=== PATIENT | female | born 1955 | race Caucasian/White ===

== ENCOUNTER 2018-01-21 15:30 | Outpatient (RCR) | payer OTHER, SELFPAY ==
--- NOTE | 2017-11-02 10:25 | HP.PTEVAL ---
Patient's Visit Information CHRIS SANTO is a 61 year old F referred to Physical Therapy by MAGDALENA Araiza with a diagnosis of S/P ORIF PILON AND FIBULA FX ORIF. Date of Evaluation: 11/01/17 Physical Therapist: Dakota Jacob, PT, - Visit Plan Frequency: 2-3x /Week Duration: WEEKS Plan: Intially start 1xweek for ROM ,edema control ,hip/knee condition ex's,no rotational ex;s IN/EV. plan to see MD for x-rays healing confirmed okay for sagittal motion. PATIENT NWB LEFT LE ,PROGRESS WITH WB PER MD - Subjective Subjective: This 61 y/o female presents to physical therapy with s/p pilon and fibula fracture ORIF. Patient injuried ankle descending hill twisted when fell ,patient went to ER [facility] x-rays ,Recommended orthopedics,but recommended DR Cates. Thus didnt have surgery until Sep 17 2017. Patient d/c to home with walker and crutches with NWB left. Recommened PT but no. inversion/eversion -rotational .Seen DR last week x-rays looked good but not totally healed. Currently has cast with luis miguel wrap ,plan for boot next visit.Denies parathesia/tingling. Patient injury affected daily activities ,ADL'S ,housework tasks. and unable to do job demands.Patient asecend/desend steps scoots up on buttuck 13 steps 2nd floor. VOCATION: libarian. SOCIAL: - Pain Left Ankle Pain Intensity (Out of 10): 2 Pain Intensity Range: 10 - Objective POSTURE: normal arch. GAIT: ambulates with NWB left ankle with crutches. BALANCE: fair+ with crutches. NEURO: denies parathesia/tingling ,light touch intact. INSCION: well approximate with sterry strips,with dressing. EDEMA: MET HEADS 26.5 cm ,tri-malleor joint line 34.5 cm. AROM: 35 -0 DF,PF 40 degrees ,IN/EV NT. MMT: dosiflexion 3+/5,plantarflexion 2+/5 in available ROM. CALF : atrophied - Goals Goal 1:: Independant with HEP Goal Time Frame: 8-12 Weeks Goal 2:: Ambulate with least restrictive device with improve quality of gait pattern recirocal Goal Time Frame: 8-12 Weeks Goal 3:: Patient to improve dynamic balnce to good along with increase proprioception to improve gait with stance time Goal Time Frame: 8-12 Weeks Goal 4:: Patient increase AROM left ankle DF to 5-0 degrees ,PF 60 degrees ,IN/EV as catherine. to improve function. Goal Time Frame: 8-12 Weeks Goal 5:: Patient incrases ankle strength tpo 4/5 except GS to 3+/5 to improve function Goal Time Frame: 8-12 Weeks Goal 6:: Patient be able to ascend/descend 12 steps with rail Goal Time Frame: 8-12 Weeks - Rehabilitation Potential Physical Therapy Diagnosis: This patient fell causing fracture right ankle pilon and fibula fx with NWB left with crutches and no rotation ankle activitiy IN/EV until x-ray per MD. Patient has impairments with loss of motion,strength ,decrease gait and balance thus causes impairments with function Rehabilitation Potential: Good - Anticipated Interventions Patient/Client Instruction: Educate patient on: Condition, Plan of Care For the Purpose of:: To decrease pain, To increase ROM, To improve muscle performance and motor function, To improve ability to perform ADL's, To increase tolerance to activity/condition/position, To decrease level of supervision to perform tasks, To improve ability of physical actions for home/community/work/leisure, To improve gait and locomotor functions, To improve health of tissue, To decrease soft tissue restriction, To increase flexibility/ROM, To improve endurance, To improve balance, To improve safety with gait, To assume or resume ADL's, To improve ability to perform tasks related to life management Therapeutic Exercise to Include: Strength training, Endurance training, Balance training, Flexibilty training, Gait and locomotor training, Passive ROM, Active ROM Comment: INITIALLY SAGGITAL MOTION ,NO IN/EV ,NWB- PROGRESS PER MD For the Purpose of:: To decrease pain, To improve muscle performance and motor function, To improve ability to perform ADL's, To increase tolerance to activity/condition/position, To improve performance and independence with ADL's, To decrease level of supervision to perform tasks, To improve ability of physical actions for home/community/work/leisure, To improve health of tissue, To decrease soft tissue restriction, To increase flexibility/ROM, To improve safety with gait, To reduce risk of recurrence, To improve ability to perform tasks related to life management TENS: Yes IF ES: Yes Other electric stimulation: Yes Cryotherapy (ice pack, ice massage): Yes Thermo therapy (hot pack): Yes Vasopneumatic device: Yes For the Purpose of:: To decrease pain, To decrease swelling/inflammation, To improve nutrient delivery to tissue, To increase oxygenation perfusion, To improve health of tissue, To decrease soft tissue restriction, To increase flexibility/ROM Thank you for the opportunity to evaluate your patient. For Medicare and Medicare HMO plans, please review the plan of care and approve it. It will need to be FAXED BACK to us at [phone] for Medicare purposes. Please let me know if there are questions or concerns regarding this plan of care. Physician Signature: Date:
--- NOTE | 2017-11-02 10:30 | HP.PTEVAL_ITS ---
Patient's Visit Information CHRIS SANTO is a 61 year old F referred to Physical Therapy by Carmelina Cates, MAGDALENA NAGEL with a diagnosis of S/P ORIF PILON AND FIBULA FX ORIF. Date of Evaluation: 11/01/17 Physical Therapist: Dakota Jacob, PT, - Visit Plan Frequency: 2-3x /Week Duration: 8weeks Plan: Intially start 1xweek for ROM ,edema control ,hip/knee condition ex's,no rotational ex;s IN/EV. plan to see MD for x-rays healing confirmed okay for sagittal motion. PATIENT NWB LEFT LE ,PROGRESS WITH WB PER MD - Subjective Subjective: This 61 y/o female presents to physical therapy with s/p pilon and fibula fracture ORIF. Patient injuried ankle descending hill twisted when fell , patient went to ER [facility] x-rays ,Recommended orthopedics,but recommended DR Cates. Thus didnt have surgery until Sep 17 2017. Patient d/c to home with walker and crutches with NWB left. Recommened PT but no. inversion/eversion - rotational .Seen DR last week x-rays looked good but not totally healed. Currently has cast with luis miguel wrap ,plan for boot next visit.Denies parathesia/ tingling. Patient injury affected daily activities ,ADL'S ,housework tasks. and unable to do job demands.Patient asecend/desend steps scoots up on buttuck 13 steps 2nd floor. VOCATION: libarian. SOCIAL: - Pain Left Ankle Pain Intensity (Out of 10): 2 Pain Intensity Range: 10 - Objective POSTURE: normal arch. GAIT: ambulates with NWB left ankle with crutches. BALANCE: fair+ with crutches. NEURO: denies parathesia/tingling ,light touch intact. INSCION: well approximate with sterry strips,with dressing. EDEMA: MET HEADS 26.5 cm ,tri-malleor joint line 34.5 cm. AROM: 35 -0 DF,PF 40 degrees ,IN/EV NT. MMT: dosiflexion 3+/5,plantarflexion 2+/5 in available ROM. CALF : atrophied - Goals Goal 1:: Independant with HEP Goal Time Frame: 8-12 Weeks Goal 2:: Ambulate with least restrictive device with improve quality of gait pattern recirocal Goal Time Frame: 8-12 Weeks Goal 3:: Patient to improve dynamic balnce to good along with increase proprioception to improve gait with stance time Goal Time Frame: 8-12 Weeks Goal 4:: Patient increase AROM left ankle DF to 5-0 degrees ,PF 60 degrees ,IN/ EV as catherine. to improve function. Goal Time Frame: 8-12 Weeks Goal 5:: Patient incrases ankle strength tpo 4/5 except GS to 3+/5 to improve function Goal Time Frame: 8-12 Weeks Goal 6:: Patient be able to ascend/descend 12 steps with rail Goal Time Frame: 8-12 Weeks - Rehabilitation Potential Physical Therapy Diagnosis: This patient fell causing fracture right ankle pilon and fibula fx with NWB left with crutches and no rotation ankle activitiy IN/EV until x-ray per MD. Patient has impairments with loss of motion,strength , decrease gait and balance thus causes impairments with function Rehabilitation Potential: Good - Anticipated Interventions Patient/Client Instruction: Educate patient on: Condition, Plan of Care For the Purpose of:: To decrease pain, To increase ROM, To improve muscle performance and motor function, To improve ability to perform ADL's, To increase tolerance to activity/condition/position, To decrease level of supervision to perform tasks, To improve ability of physical actions for home/ community/work/leisure, To improve gait and locomotor functions, To improve health of tissue, To decrease soft tissue restriction, To increase flexibility/ ROM, To improve endurance, To improve balance, To improve safety with gait, To assume or resume ADL's, To improve ability to perform tasks related to life management Therapeutic Exercise to Include: Strength training, Endurance training, Balance training, Flexibilty training, Gait and locomotor training, Passive ROM, Active ROM Comment: INITIALLY SAGGITAL MOTION ,NO IN/EV ,NWB- PROGRESS PER MD For the Purpose of:: To decrease pain, To improve muscle performance and motor function, To improve ability to perform ADL's, To increase tolerance to activity /condition/position, To improve performance and independence with ADL's, To decrease level of supervision to perform tasks, To improve ability of physical actions for home/community/work/leisure, To improve health of tissue, To decrease soft tissue restriction, To increase flexibility/ROM, To improve safety with gait, To reduce risk of recurrence, To improve ability to perform tasks related to life management TENS: Yes IF ES: Yes Other electric stimulation: Yes Cryotherapy (ice pack, ice massage): Yes Thermo therapy (hot pack): Yes Vasopneumatic device: Yes For the Purpose of:: To decrease pain, To decrease swelling/inflammation, To improve nutrient delivery to tissue, To increase oxygenation perfusion, To improve health of tissue, To decrease soft tissue restriction, To increase flexibility/ROM Thank you for the opportunity to evaluate your patient. For Medicare and Medicare HMO plans, please review the plan of care and approve it. It will need to be FAXED BACK to us at [phone] for Medicare purposes. Please let me know if there are questions or concerns regarding this plan of care. Physician Signature: Date:
--- NOTE | 2017-11-19 17:06 | ED.VISSUMM ---
- ER Visit Summary Date of Service: 09/04/17 This is an addendum to the previous dictation on 09/04/2017. Patient was consented for procedural sedation and closed reduction of trimalleolar fracture/dislocation. Procedural sedation was performed with IV propofol by myself. Sedation start time was 1555, and end time was 1608. Closed reduction was performed with the assistance of Dr. Renny Calvin. Ortho-Glass splint was applied by myself. She was observed following procedural sedation. After discussion with orthopedics, patient was discharged and advised outpatient follow up. This note was generated with [employer] dictation software. It may contain incorrect words, spelling, and punctuation that were not noted in review of the chart prior to signing
--- NOTE | 2017-11-19 17:10 | ED.DCSUM_ITS ---
- ER Visit Summary Date of Service: 09/04/17 This is an addendum to the previous dictation on 09/04/2017. Patient was consented for procedural sedation and closed reduction of trimalleolar fracture/ dislocation. Procedural sedation was performed with IV propofol by myself. Sedation start time was 1555, and end time was 1608. Closed reduction was performed with the assistance of Dr. Renny Calvin. Ortho-Glass splint was applied by myself. She was observed following procedural sedation. After discussion with orthopedics, patient was discharged and advised outpatient follow up. This note was generated with [employer] dictation software. It may contain incorrect words, spelling, and punctuation that were not noted in review of the chart prior to signing
--- NOTE | 2018-04-15 08:28 | HP.PT.NRP ---
HP - Discharge Summary (1) - Patient Information CHRIS SANTO was seen in my office for initial evaluation on 11/01/17. The following Plan of Care was established for this patient: Initial Frequency: 2-3x /Week Initial Duration: 8weeks - Anticipated Interventions Patient/Client Instruction: Educate patient on: Condition, Plan of Care For the Purpose of:: To decrease pain, To increase ROM, To improve muscle performance and motor function, To improve ability to perform ADL's, To increase tolerance to activity/condition/position, To decrease level of supervision to perform tasks, To improve ability of physical actions for home/community/work/leisure, To improve gait and locomotor functions, To improve health of tissue, To decrease soft tissue restriction, To increase flexibility/ROM, To improve endurance, To improve balance, To improve safety with gait, To assume or resume ADL's, To improve ability to perform tasks related to life management Therapeutic Exercise to Include: Strength training, Endurance training, Balance training, Flexibilty training, Gait and locomotor training, Passive ROM, Active ROM For the Purpose of:: To decrease pain, To improve muscle performance and motor function, To improve ability to perform ADL's, To increase tolerance to activity/condition/position, To improve performance and independence with ADL's, To decrease level of supervision to perform tasks, To improve ability of physical actions for home/community/work/leisure, To improve health of tissue, To decrease soft tissue restriction, To increase flexibility/ROM, To improve safety with gait, To reduce risk of recurrence, To improve ability to perform tasks related to life management TENS: Yes IF ES: Yes Other electric stimulation: Yes Cryotherapy (ice pack, ice massage): Yes Thermo therapy (hot pack): Yes Vasopneumatic device: Yes For the Purpose of:: To decrease pain, To decrease swelling/inflammation, To improve nutrient delivery to tissue, To increase oxygenation perfusion, To improve health of tissue, To decrease soft tissue restriction, To increase flexibility/ROM This patient was last seen in our office 01/21/18. Pertinent comments regarding their Physical therapy will appear below: Patient seen for PT for s/p pilon fx tibia/fibula for 11 visits focusing on WB restriction ,gait,ROM,strengthening,balance and progression with WBAT with shoe. Patient progressed well towards goals with gait,balance ,ROM,strength but IN/EV restricted.Thus patient is d/c. At this point I will be discontinuing this patient from physical therapy. I would be happy to see this patient again in the future if found appropriate by the physician. Thank you! Dakota Jacob, PT,
== END 2018-01-21 19:00 | disposition home or self-care (01) ==
LOC: PT 15:30
PROVIDERS: Family Provider Family Medicine; PCP Family Medicine; Visit Provider Podiatrist
DX: Z98.890 Other specified postprocedural states (principal)
CPT/HCPCS: 97016; 97110; 97162

== ENCOUNTER → 2019-06-09 10:24 | Outpatient (CLI) | payer OTHER, SELFPAY ==
[2019-06-09 11:30] LABS: Anion Gap 4 (5-15); BUN 12 mg/dL (7-18); Calcium,Total 8.6 mg/dL (8.5-10.1); Chloride 109 mmol/L (98-107); Cholesterol 142 mg/dL (200); EST Glomerular Filtration Rate 77 mL/min (>60); Est Glom Filt Rate - Afr Amer 93 mL/min (>60); Glucose 86 mg/dL (74-106); High Density Lipoprotein 62 mg/dL; Sodium Level 141 mmol/L (136-145); Triglycerides 60 mg/dL; Very Low Density Lipoprotein 12 mg/dL (5-40)
== END ==
PROVIDERS: Family Provider Family Medicine; PCP Family Medicine; Referring Provider Family Medicine; Visit Provider Family Medicine
DX: Z13.220 Encounter for screening for lipoid disorders (principal); Z13.1 Encounter for screening for diabetes mellitus
CPT/HCPCS: 36415; 80048; 80061

== ENCOUNTER 2020-06-15 09:22 | Emergency (ER) | payer OTHER, SELFPAY ==
[2020-06-15 09:23] VITALS: BP 135/89; PULSE 79; RESP 16; TEMP 36.7; O2SAT 100; BMI 27.2
--- NOTE | 2020-06-15 09:42 | ED.VIS.GEN ---
History of Present Illness <Mau Rivas - Last Filed: 06/15/20 10:56> Informant: Patient Onset: Days Context: Gradual Onset Timing: Intermittent Current Severity: Moderate Narrative: 64-year-old female with no significant past medical history presents with complaints of back pain. Around 5 days ago she started having back pain near her left scapula and mid back. It is worse with movement or lifting and improves if she stands with good posture. Last night it started radiating around under her left breast. She she lifted heavy plants a few days before her symptoms started and does not know if this was an inciting event. Denies deep chest pain, shortness of breath, cough, hemoptysis, abdominal pain, nausea, vomiting, or bowel/bladder changes. No recent surgery or travel, leg pain or swelling, or history of DVT/PE. Denies cardiac history or history of kidney stones. <RosalineKeila - Last Filed: 06/15/20 12:24> Chief Complaint: Back Past Medical History <Mau Rivas - Last Filed: 06/15/20 10:56> Past Medical History: None Surgical History: - - Open reduction internal fixation left, BLTL, Back surgery. Smoking Status: Former smoker - Family History Maternal Family History: Reports: - - No maternal history however maternal grandfather w/ DM and maternal grandmother w/ HD, OA. Paternal Family History: Reports: - - Father w/ HTN, Paternal Grandfather w/ CA, CVA and Paternal Grandmother w/ HD, HTN. <Keila Waggoner - Last Filed: 06/15/20 12:24> - Allergies and Home Meds Allergies/Adverse Reactions: Allergies triamcinolone [From Kenalog] Allergy (Verified 06/15/20 09:22) Other Primary Care Physician: Alfred Light MD [Primary Care Provider] - Review of Systems General: Denies: Chills, Fever, Sweats Eyes: Denies: Visual changes - bilaterally, Diplopia ENT: Denies: Rhinorrhea, Sore throat Cardiovascular: Denies: Chest pain, Palpitations Respiratory: Denies: Dyspnea, Cough, Dyspnea on exertion Gastrointestinal: Denies: Abdominal pain, Nausea, Vomiting, Diarrhea, Melena, Hematochezia Genitourinary: Denies: Dysuria, Hematuria, Frequency Musculoskeletal: Reports: Back pain. Denies: Extremity Pain Skin: Denies: Rash, Wounds Neurological: Denies: Headache, Weakness, Parasthesia, Numbness <Keila Waggoner - Last Filed: 06/15/20 12:24> Physical Exam Vital Signs/Narrative: Vital Signs Temp Pulse Resp BP Pulse Ox 06/15/20 09:23 98.1 F 79 16 135/89 H 100 <Mau Rivas - Last Filed: 06/15/20 10:56> Vital Signs/Narrative: Vital Signs Temp Pulse Resp BP Pulse Ox 06/15/20 09:23 98.1 F 79 16 135/89 H 100 Inital Vital Signs reviewed: Yes General: Well nourished, Well developed, No Acute Distress Head: Normocephalic, Atraumatic Eyes: EOMI ENT: Moist mucous membranes, No rhinorrhea Neck: Supple, Nontender Cardiovascular: Regular rate, Regular rhythm, No murmurs Respiratory: No distress, CTA bilaterally, Chest nontender Abdomen: Soft, Nontender, Nondistended, Normal bowel sounds Back: Normal Inspection, CVA tenderness - Left, - - No midline spinal tenderness, no step-off or crepitus. Extremities: Nontender, No edema Skin: Normal color, No rash Neurological: Alert, Oriented x3 Psychological: Normal affect, Normal Mood <Keila Waggoner - Last Filed: 06/15/20 12:24> Diagnostic/Tx/Re-eval - Medical Decision Making I supervised the PA and have performed my own pertinent history and physical. Results and treatment plan were discussed. HPI: Patient complains of left flank pain that began 3 days ago. This began approximate 24 hours after eating a heavy planter. She denies any other trauma. No fall, MVA, or change in activity. Reports the pain is 8 out of 10 at worst and 3 out of 10 currently. It is worsened by movement. She denies any dysuria frequency. She denies any chest pain or shortness of breath. She has no personal history of kidney stones. She does have a family history of kidney stones. PE: Vitals: Stable. Afebrile. General: Well-nourished and well-developed. Head: Normocephalic atraumatic. Neck: Supple, no lymphadenopathy. No JVD. Nontender. Cardiovascular: Regular rate and rhythm. No murmurs. Respiratory: No respiratory distress. Clear to auscultation bilaterally. Abdominal: Soft, nontender, nondistended, normal bowel sounds. No guarding, rebound, or peritoneal signs. Back: No vertebral tenderness. No paraspinous muscular tenderness. She does have mild tenderness with percussion of the left CVA. Extremities: Nontender, no edema. Skin: Normal color, no rash. Neurologic: Alert and oriented ?3. Cranial nerves II through XII are intact. Normal strength and sensation. Psych: Normal affect. Emergency Department course: Blood work and UA obtained. No evidence of infection. Did discuss the possibility of a stone without hematuria with the patient. She wants to hold off on a CT at this time. I feel that is a reasonable course of action. Patient is resting comfortably. Treatment Plan: Patient will be discharged with Percocet. Instructed to follow-up with her primary care physician in 3 to 5 days if not improving. Return to the emergency department for any worsening symptoms. This note was generated with [employer] dictation software. It may contain incorrect words, spelling, and punctuation that were not noted in review of the chart prior to signing. <Mau Rivas - Last Filed: 06/15/20 10:56> Laboratory Data 06/15/20 06/15/20 06/15/20 10:00 10:00 10:00 WBC 8.5 RBC 4.36 Hgb 13.7 Hct 41.8 MCV 95.9 MCH 31.4 MCHC 32.8 RDW Std Deviation 45.9 H RDW Coeff of Hazel 13.0 Plt Count 295 MPV 11.3 Immature Gran % (Auto) 0.100 Neut % (Auto) 69.0 Lymph % (Auto) 23.9 Moore % (Auto) 5.2 Eos % (Auto) 1.3 Baso % (Auto) 0.5 Absolute Neuts (auto) 5.9 Absolute Lymphs (auto) 2.03 Nucleated RBC % 0 Sodium 142 Potassium 3.7 Chloride 108 H Carbon Dioxide 32.0 Anion Gap 2 L BUN 10 Creatinine 0.86 Estim Creat Clear Calc 67.54 Est GFR (MDRD) Af Amer 86 Est GFR (MDRD) Non-Af 71 BUN/Creatinine Ratio 11.6 Glucose 102 Calcium 9.0 Lipase 56 L Urine Color Yellow Urine Clarity Clear Urine pH 6.5 Ur Specific [place] 1.010 Urine Protein Negative Urine Glucose (UA) Normal Urine Ketones Negative Urine Occult Blood 10 H Urine Nitrite Negative Urine Bilirubin Negative Urine Urobilinogen Normal Ur Leukocyte Esterase Negative Urine RBC 0 SEEN Urine WBC 0 SEEN Ur Squamous Epith Cells 0-5 SEEN Urine Bacteria 0 SEEN Urine Mucus 0 SEEN - Medical Decision Making Patient presents with left flank pain that started after heavy lifting. Exam, she has reproducible left flank pain with palpation and it is reproducible with movement. Labs and UA are within normal limits. She is feeling improved after Toradol and Zofran. I discussed there is a possibility of a kidney stone but after weighing the risks and benefits of CT, patient was agreeable to hold off. She was advised to treat her pain is musculoskeletal back pain and was given Percocet. Follow-up with PCP next week. Discussed symptoms that would warrant return to the ED. She was agreeable and discharged home in stable condition. <Keila Waggoner - Last Filed: 06/15/20 12:24> ED Disposition <Mau Rivas - Last Filed: 06/15/20 10:56> <Keila Waggoner - Last Filed: 06/15/20 12:24> - Plan for ED Patient: Disposition: Home or Assisted Living Diagnosis: Musculoskeletal back pain Instructions: ED Back Pain Acute or Chronic Prescriptions: Oxycodone HCl/Acetaminophen [Percocet 5/325] 1 tab PO Q6H PRN PRN 3 Days #12 tab PRN Reason: Pain Prescription Printed Referrals: Alfred Light MD [Primary Care Provider] -
[2020-06-15] MEDS: Ondansetron 4 MG/2 ML Vial IV (10:01)
[2020-06-15] MEDS: Ketorolac 30 MG/ML Syringe IV (10:01)
[2020-06-15 10:08] LABS: Bacteria 0 SEEN /hpf (None Seen); Mucous, Urine 0 SEEN /hpf (<or=2+); Red Blood Cells-Urine 0 SEEN /hpf (0-5); White Blood Cells 0 SEEN /hpf (0-5)
[2020-06-15 10:25] LABS: Absolute Lymphocyte Count 2.03 X10^3/uL (0.83-4.51); Absolute Neutrophil Count 5.9 X10^3/uL (2.0-7.7); Basophil# 0.04 X10^3/uL; Basophil% 0.5 % (0-1); Eosinophil# 0.11 X10^3/uL; Eosinophils% 1.3 % (0-5); Hematocrit 41.8 % (37-47); Hemoglobin 13.7 g/dL (12.0-15.0); Lymphocyte # 2.03 X10^3/ul (4.0); Lymphocyte % 23.9 % (19-41); Mean Corp Hgb Conc 32.8 g/dL (32-36); Mean Corpuscular Hgb 31.4 pg (27.0-32.0); Mean Corpuscular Volume 95.9 fL (81-99); Mean Platelet Vol. 11.3 fl (6.2-12.0); Monocyte# 0.44 X10^3/uL; Monocyte% 5.2 % (0-10); NRBC Flagged by Analyzer 0 % (0-5); Neutrophil # 5.87 X10^3/uL (2.7-7.7); Platelet Count 295 K/mm3 (150-450); RBC Distribution Width SD 45.9 fl (35.1-43.9); Red Blood Count 4.36 M/mm3 (4.2-5.4); White Blood Count 8.5 K/mm3 (4.4-11.0)
[2020-06-15 10:26] LABS: Anion Gap 2 (5-15); BUN 10 mg/dL (7-18); BUN/Creat Ratio 11.6 RATIO (10-20); Chloride 108 mmol/L (98-107); Creatinine, Serum 0.86 mg/dL (0.55-1.02); EST Glomerular Filtration Rate 71 mL/min (>60); Est Glom Filt Rate - Afr Amer 86 mL/min (>60); Estimated Creatinine Clearance 67.54 ml/min; Glucose 102 mg/dL (74-106); Lipase 56 U/L (73-393); Potassium 3.7 mmol/L (3.5-5.1); Sodium Level 142 mmol/L (136-145)
[2020-06-15 10:35] LABS: Color, Urine Yellow (Yellow); Glucose, Dipstick Normal (Normal); Ketone-Dipstick Negative (Negative); Leukocyte Esterase-Dipstick Negative /ul (Negative); Nitrite-Dipstick Negative (Negative); Occult Blood-Urine 10 /ul (Negative); Protein-Dipstick Negative (Negative); Urine Bilirubin Dipstick Negative (Negative); Urine Clarity Clear (Clear); Urine Urobilinogen Normal (Normal); Urine pH 6.5 (5.0 - 8.0)
[2020-06-15 10:44] LABS: Squamous Epithelial Cells - UA 0-5 SEEN /hpf (5-10)
== END 2020-06-15 11:15 | disposition home or self-care (01) ==
PROVIDERS: Emergency Provider Physician Assistant; PCP Family Medicine
DX: M54.6 Pain in thoracic spine (principal); Z87.891 Personal history of nicotine dependence
CPT/HCPCS: 80048; 81001; 83690; 85025; 96374; 96375; 99283; A4216; J2405

== ENCOUNTER 2021-10-25 12:05 | Emergency (ER) | payer OTHER, SELFPAY ==
[2021-10-25] VITALS (7 sets, daily range): BP systolic 102–126; BP diastolic 57–69; PULSE 56–62; RESP 15–20; TEMP 36.4; O2SAT 97–100; BMI 30.5
--- NOTE | 2021-10-25 12:11 | RAD_ITS ---
STUDY: X-RAY - RIGHT WRIST REASON FOR EXAM: Female, 65 years old. fall and fracture TECHNIQUE: 3 view(s) of the wrist were obtained. COMPARISON: None. FINDINGS: Acute comminuted impacted dorsally displaced fracture of the distal radius and ulna consistent with a Colles'' fracture with extension into the radiocarpal joint. Normal radiocarpal articulation. Normal distal radioulnar articulation. Normal carpal bones. Normal carpal articulations. Normal carpometacarpal articulation of the thumb. Normal second through fifth carpometacarpal articulations. Normal visualized metacarpal bones. The soft tissue structures are unremarkable. RAD/Wrist min 3 Views IMPRESSION: Acute comminuted impacted Colles'' fracture. Electronically Signed: Zane Gtz MD at 13:19 EST ,
--- NOTE | 2021-10-25 12:13 | EX.ED.UPPERE ---
HPI History of Present Illness Chief Complaint: Upper Extremity Injury Informant: patient Occured/Mechanism Mechanism/Context: Yes injury and Yes blunt trauma Onset/Context/Timing Onset: Today and Hours Context: Sudden Onset Timing: Continuous Quality of Pain: Sharp Current Severity: Moderate Maximum Severity: Moderate Associated Symptoms Associated Symptoms: Negative for Parasthesia and Weakness Narrative Narrative: 65-year-old female [id number]. She was outside doing recycling when she slipped on ice and landed awkwardly injuring her right wrist which she believes is broken. No prior history or surgery to the wrist or upper extremity. She denies hitting her head or other injuries. This occurred about an hour ago. Prior similar symptoms: No Recent Illness/Hospitalization: No PFSH PFSH Medical History no medical history no medical history Home Medications hydrocodone-acetaminophen 1 tab PO Q4H PRN 5 Days #20 tab 10/25/21 [Rx Last Taken Unknown] Allergy/AdvReac Type Severity Reaction Status Date / Time triamcinolone [From Kenalog] Allergy Other Verified 10/25/21 12:05 Surgical History History of ankle surgery Social History Smoking Status: Unknown if ever smoked ROS ROS ED ROS Narrative Denies recent illness. Review of Systems ROS Unobtainable: Denies due to encephalopathy Constitutional Constitutional ED: Denies fever(s) Eyes Eyes: Denies change in vision ENT ENT ED: Denies ear pain Cardiovascular Cardiovascular: Denies chest pain Respiratory/Chest Respiratory/Chest: Denies dyspnea Gastrointestinal Gastrointestinal: Denies abdominal pain Genitourinary Genitourinary ED: Denies dysuria Musculoskeletal Musculoskeletal: Denies myalgias Integumentary Denies rash Neurologic Neurologic: Denies headache(s) Psychiatric Psychiatric: Denies depression Endocrine Endocrinology: Denies polyuria Hematologic/Lymphatic Hematologic/Lymphatic: Denies easy bruising Allergic/Immunologic Allergic/Immunologic ED: Denies urticaria EXAM Physical Exam Narrative Exam Narrative: Female no acute distress other than right wrist pain. Vital signs stable afebrile. H EENT exam unremarkable atraumatic. Pupils round react to light. Nontender scalp. C-spine nontender. Trachea midline. Lungs clear to auscultation bilaterally. Heart regular rhythm rate about 60 no murmur. Chest nontender. Abdomen soft nontender. Pelvic girdle intact. Both lower extremities are nontender. Normal range of motion normal dorsi plantar flexion. Left upper extremity nontender normal range of motion. Normal wildlife technician strength. Right wrist tender, swollen and deformed. Decreased range of motion. Able to open close her hand. Able to wiggle her fingers. Normal touch sensation. Skin intact. Wrist clinically looks deformed and fractured. Neurologically she is awake and alert. Const Vital Signs: 10/25/21 12:06 Temperature 97.5 F L Temperature Source Oral Pulse Rate 61 Respiratory Rate 18 Blood Pressure 102/60 Blood Pressure Mean 74 Pulse Ox 100 Oxygen Delivery Method Room Air Positive well nourished and well developed; Negative for cachectic, contractures or unkempt General Appearance ED: well developed and NAD; Negative for unkempt, cachectic, contractures, cyanotic or diaphoretic Nutritional Appearance: Negative for cachectic HEENT Reports moist mucous membranes normocephalic and atraumatic; Negative for trauma or tenderness Eyes PERRL and EOMs intact bilaterally Neck full ROM and supple General: Negative for tenderness Chest Wall inspection of chest normal and palpation of chest normal Resp normal respiratory effort and clear to auscultation bilaterally Effort and Inspection: Negative for pain with movement Auscultation: Negative for rales or rhonchi Cardio regular rate, regular rhythm, S1 normal heart sound, S2 normal heart sound and no murmurs GI non-tender, non-distended and no masses Auscultation: normoactive bowel sounds Palpation: soft; Negative for tender or guarding Back/Spine no CVA tenderness General Back: Negative for CVA tenderness Cervical Spine: Negative for cervical spine tenderness Thoracic Spine / Upper Back: Negative for thoracic spinal tenderness Lumbar Spine / Lower Back: Negative for lumbar spinal tenderness Extremity normal to inspection and full ROM Extremity Narrative: Except right wrist tender, swollen and deformed consistent with a wrist fracture. Skin closed. Proximal and proximal forearm are nontender. She is awake alert fingers. Has normal cap refill and touch sensation. General Extremety ED: Negative for edema General Extremity: Negative for edema Neuro oriented x3 and moves all extremities Sensorium / Orientation: alert, oriented to person, oriented to place and oriented to time; Negative for orientation impaired, lethargic or stuporous Motor Exam: strength 5/5 throughout Psych mental status grossly normal Appearance: Negative for unkempt Mood & Affect: Negative for depressed or tearful Skin General Skin Exam: Negative for petechiae Lesions: no lesions Rashes: no rashes Trauma: no lacerations or abrasions; Negative for abrasion, laceration or puncture MDM MDM MDM Narrative Medical decision making narrative: 65-year-old female fell I suspect she has a right wrist fracture. X-rays being obtained. IV is being placed for IV morphine and Zofran. Patient was consciously sedated with propofol using a total of 100 mg. While under conscious sedation protocol I reduce the fracture and placed a short arm AP splint. Patient tolerated procedure well and was waking up appropriately. Vital signs and pulse ox remained stable the entire time. Postreduction films look much improved than the prior set of x-rays. Radiography Diagnostic Testing: Right wrist x-ray, 3 views, interpreted by myself shows comminuted distal radius fracture with dorsal displacement. Also distal ulna fracture. Post reduction right wrist x-rays, 3 views, interpreted myself shows comminuted fracture of the distal radius and ulna but with significant improvement with alignment. Much improved from the first set of x-rays. Procedures Upper Extremity Splints Upper Extremity Splint: Orthoglass Splint Fabrication: Fabricated Location: Right Other Procedures Procedure(s): Conscious sedation using propofol. Today patient ate 5 hours prior to procedure. With vital signs stable. She was initially given the 60 of IV propofol and then forearm. During the conscious sedation procedural sedation I reduced and splinted by her right wrist fracture. Patient tolerated procedure well. Vital signs and pulse ox stayed stable the entire time. She is now waking up appropriately. Discharge Plan Triage Chief Complaint: Upper Extremity Injury ED Provider: Abe Castro Dx/Rx/DC Orders Clinical Impression: Fall, Wrist fracture, right Instructions: ED Fracture, Wrist, General Prescriptions: New hydrocodone-acetaminophen 5-325 mg tablet 1 tab PO Q4H PRN (Reason: pain) 5 Days Qty: 20 RF: 0 Primary Care Provider: Alfred Light Referrals: Alfred Light MD [Primary Care Provider] - Renny Cornell DO [STAFF PHYSICIAN] - As soon as possible Activity Restrictions/Additional Instructions: Ice elevate your right wrist to decrease the pain and swelling. Keep the splint dry and clean. Floyd for pain. Plenty of fluids and fiber to prevent constipation. You may need a stool softener. Call and follow-up with the orthopedic physician as soon as possible. This may need surgery to repair it ideally. Disposition Disposition: Home, Self Care
[2021-10-25] MEDS: Ondansetron 4 MG/2 ML Vial IV (12:22)
[2021-10-25] MEDS: morphine 8 MG/ML Syringe 6 MG IV ×2 (12:23→13:04)
[2021-10-25] MEDS: Propofol 200 MG/20 ML Vial IV BOLUS (14:11)
--- NOTE | 2021-10-25 14:11 | RAD_ITS ---
EXAM: XR RIGHT WRIST COMPLETE, 3 OR MORE VIEWS : 1955 CLINICAL INDICATION: post reduction TECHNIQUE: Frontal, lateral and oblique views of the right wrist. This report was created using [employer] report generation technology. COMPARISON: 10/25/2021 1242 hrs. FINDINGS: BONES/JOINTS: There has been a closed reduction of fractures of the distal radius and ulna. Alignment is anatomic. A fiberglass cast is in place. Preservation of the joint space. No sclerotic or destructive changes observed. SOFT TISSUES: Unremarkable. No soft tissue swelling or gas. No radiopaque foreign body. RAD/Wrist min 3 Views IMPRESSION: Closed reduction with casting of fractures of the distal radius and ulna. Alignment is anatomic. at 1448 Reported and signed by: Johan Clayton MD Electronically Signed: Johan Clayton MD at 14:47 EST ,
== END 2021-10-25 14:46 | disposition home or self-care (01) ==
PROVIDERS: Emergency Provider Emergency Medicine; PCP Family Medicine; Visit Provider Emergency Medicine
DX: S52.501A Unspecified fracture of the lower end of right radius, initial encounter for closed fracture (principal); S52.601A Unspecified fracture of lower end of right ulna, initial encounter for closed fracture; W00.0XXA Fall on same level due to ice and snow, initial encounter
CPT/HCPCS: 25600; 73110; 96374; 96375; 96376; 99285; J7030; A4216; J2405

== ENCOUNTER → 2022-01-15 | Outpatient (CLI) | payer OTHER, SELFPAY ==
--- NOTE | 2022-01-15 13:57 | BD_ITS ---
STUDY: DUAL ENERGY X-RAY ABSORPTIOMETRY / DXA REASON FOR EXAM: Female, 66 years old. S62.101A. Patient is postmenopausal. TECHNIQUE: Bone Mineral Density (BMD) measurements of lumbar spine and bilateral hips were obtained. COMPARISON: None. FINDINGS: Lumbar Spine (L1-L4): g/cm2 (0.959) / T-score (-0.8) / Z-score (1.0) Findings are suggestive of normal bone density with a low fracture risk. Left Femur Total: g/cm2 (0.778) / T-score (-1.3) / Z-score (-0.1) Left Femoral Neck: g/cm2 (0.574) / T-score (-2.5) / Z-score (-1.0) Right Femur Total: g/cm2 (0.788) / T-score (-1.3) / Z-score (0.0) Right Femoral Neck: g/cm2 (0.610) / T-score (-2.2) / Z-score (0.6) BD/Dexa Bone Density Study IMPRESSION: The patient is considered osteopenic as outlined below according to World Daniel Organization (WHO) criteria with a high fracture risk. Reference Information: The T-score is the number of standard deviations above or below the standard which is normal for young adults at their peak bone mineral density. The World Health Organization (WHO) interprets the T-scores as follows: Above -1 Normal bone density Between -1 and -2.5 Osteopenia Equal to / or below -2.5 Osteoporosis As a practical clinical guideline, osteopenia may be graded as follows: Mild -1 through -1.5 Moderate -1.6 through -2.0 Severe -2.1 through -2.4 The Z-score is the number of standard deviations above or below age-matched controls. A Z-score of less than -1.5 would be considered abnormal. References: 1. NIH Osteoporosis and Related Bone Diseases www osteo.org 2. International Society for Clinical Densitometry www iscd.org 3. National Osteoporosis Foundation www nof.org Electronically Signed: Jose Dumas MD at 13:52 EDT ,
== END | disposition home or self-care (01) ==
PROVIDERS: PCP Family Medicine; Referring Provider Family Medicine; Visit Provider Family Medicine
DX: S62.101A Fracture of unspecified carpal bone, right wrist, initial encounter for closed fracture (principal)
CPT/HCPCS: 77080

== ENCOUNTER → 2022-03-19 | Outpatient (CLI) | payer OTHER, SELFPAY ==
[2022-03-19 10:31] LABS: PTHIN 68.1 pg/mL (18.4-80.1)
[2022-03-19 10:35] LABS: Vitamin D,25 Hydroxy 23.3 ng/mL
[2022-03-19 10:56] LABS: Anion Gap 3 (5-15); BUN 15 mg/dL (7-18); BUN/Creat Ratio 17.5 RATIO (10-20); Chloride 107 mmol/L (98-107); Cholesterol 178 mg/dL (200); Creatinine, Serum 0.86 mg/dL (0.55-1.02); EST Glomerular Filtration Rate 71 mL/min (>60); Est Glom Filt Rate - Afr Amer 85 mL/min (>60); Glucose 88 mg/dL (74-106); High Density Lipoprotein 63 mg/dL; Magnesium 2.4 mg/dL (1.6-2.6); Phosphorus 3.3 mg/dL (2.5-4.9); Potassium 4.3 mmol/L (3.5-5.1); Sodium Level 140 mmol/L (136-145); Thyroid Stim Hormone (TSH) 2.35 uIU/mL (0.358-3.74); Triglycerides 133 mg/dL; Very Low Density Lipoprotein 27 mg/dL (5-40)
== END | disposition home or self-care (01) ==
LOC: MTLAB 09:06
PROVIDERS: PCP Family Medicine; Referring Provider Family Medicine; Visit Provider Family Medicine
DX: M85.80 Other specified disorders of bone density and structure, unspecified site (principal); Z13.220 Encounter for screening for lipoid disorders
CPT/HCPCS: 36415; 80048; 80061; 82306; 83735; 83970; 84100; 84443

== ENCOUNTER 2022-05-28 09:00 | Outpatient (RCR) | payer OTHER, SELFPAY ==
--- NOTE | 2021-12-04 13:17 | HP.OTEVAL ---
Patient's Visit Information MAGDALENA SANTO is a 65 year old F, referred to Occupational Therapy by Dr. oCnnie Avalos MD, with a diagnosis of closed displaced fracture of styloid process of right ulna initial encounte. Date of Evaluation: 12/04/21 Occupational Therapist: Adrianne Balbuena, OTR/L - Subjective This eval was completed by Ngoc Valdivia S/OT under the direct supervision of Adrianne Balbuena OTD, OTR/L. Pt. fractured R wrist on 10-25-21 while taking out recycling, slipped and fell, went to ER and had ORIF surgery. R volar & dorsal spanning plating of comminuted intra-articular distal radius fracture. ORIF of distal ulna fracture Pinned neuroma excision and burying of nerve in muscle on 11-04-21. Lives w/ spouse who has own health issues. - ADLs Fasteners: Snaps, [place] Comments: difficulty w/ bra fasteners-- edu on 2 adaptive methods Kitchen: Chop with knife, Peel fruits & vegetables, Open jars, Open bottle caps, Ziplock bags, Lift gallon of milk, Pour from pitcher, Lift saucepan, Take dish out of oven, Load/unload timber poisoner, Place dish in microwave Comments: has modified meal routine for simple prep d/t difficulty w/ the above - Pain Right Wrist 0 - Objective original resting wrist/hand orthosis until 11-19-21, then received a new wrist orthosis to wear daily, has horn/resting hand splint for nighttime; very limited on wrist flexion/extension because of von - ROM Shoulder: WNL Elbow: WNL Wrist: 0 MP: L 34* IP: 0 MP: R : 1- F 60, E -30; 2- F 65, E -30; 3-F 55, E -30 4- F 55, E -30 PIP: R digits 1-50 2-80 3-95 4-90 DIP: R digits 1-55 2-55 3-60 4-70 ROM Comments: L hand WNL; - Strength Ux Visual Designer: R- NT L-60 Lateral Pinch: L10 Tripod Pinch: L12 Tip-to-Tip Pinch: L10 Strength Comments: did not test R secondary to being 4 weeks post-op, will assess when appropriate - Edema Wrist: 7 3/4 inches PIP: 8 1/4 inches across digits Other: L thumb-7 1/2 1st 7 1/2 2nd 7 1/2 3rd 6 1/2 4th 6 - Sensation Stereognosis: Normal - Right, Normal - Left Kinesthesia: Normal - Right, Normal - Left Proprioception: Normal - Right, Normal - Left - Quick DASH-Disab of Arm,Shoulder& Hand Quick DASH Score: 90.9075 - Goals Goal:: Magdalena will improve R wrist and restaurant delivery driver strength for ADL tasks by 10# within 6 weeks. Goal:: Magdalena will improve R finger flexion/ extension by 5-10 degrees for ADL tasks within 6 weeks. Goal:: Magdalena will report no pain greater than 2/10 during sleep within 6 weeks. Goal:: Magdalena will demo a reduction in edema of R wrist and digits by 25% within 6 weeks. - Rehabilitation General Assessment: (cont from above: closed displaced fracture of styloid process of right ulna initial encounter. other intraarticular fracture of lower end of right radius initial encounter for closed fracture). pt. has swelling in R hand, wrist and forearm status post ORIF and plating on 11-04-21. Pt. to have another sx to remove von before January 26. Pt. unable to flex/ext R wrist secondary to von sx placement. Pt. has difficulty with UB dressing, household tasks, and other IADL tasks and is wearing wrist orthosis. Pt. unable to complete work tasks. Pt. would benefit from OT services to decrease swelling, increase hand function for ADL and work tasks. Pt. motivated to return to PLOF and agreeable to participating in exercises, scar mgt, and reviewing HEP. Therapist modified resting orthosis to in crease MP extension, trial for fit successful. Therapist contacted [facility] to request any protocols as needed, left CB info and fax #. Rehabilitation Potential: Excellent - Anticipated Interventions Early Active Motion, A/AAROM/PROM, Strengthening, Edema Control, Scar Care, Massage, Modalities, Orthoses, Joint Protection/Energy Conservation, Fine Motor Coord/Anthony, Education re Self Massage Techniques, Home Program - Visit Plan Frequency: 2x /Week Duration: 6 Weeks General Plan: increase strength and AROM to R wrist to complete ADL, home management, and work tasks. TEXT: Thank you for the opportunity to evaluate your patient. For Medicare and Medicare HMO plans, please review the plan of care and approve it. It will need to be FAXED BACK to us at [phone] for Medicare purposes. Please let me know if there are questions or concerns regarding this plan of care. Physician Signature: Date:
--- NOTE | 2022-01-30 10:52 | HP.OTREVAL ---
Dr. Connie Avalos MD, It has been my pleasure to treat MAGDALENA SANTO over the last 15 visits for closed displaced fracture of styloid process of right ulna initial encounte. Please see the progress note below for an update on the occupational therapy plan of care! Subjective: Pt. reported going to preop and being reassured put to sleep for surgery. Pt. wearing orthosis and alternating isotoner and stockingette. Pt. reports she is unable to wear extended orthosis piece at night because it makes her fingers hot and itchy. Surgery is on 02-03-22. Objective/Function: R wrist 18.5 cm, increased from Wednesday. R Thumb to RF tip. Pt. has redness on R forearm. Pt. reported she has been airing arm out from brace at end of tx. R punch out crew member 5#. R wrist supination 55*. pt. motivated to continue with her improvements. Pt. reporting that she is using her hand more with daily tasks. Plan Frequency: 2x /Week Duration: 6 Weeks Plan: Next tx. is day after surgery, reassess. Goals - Goals Patient Goals: Regain Mobility, Regain Strength, Decrease Pain, Return to Work, Decrease Swelling/Stiffness, Improve Fine Motor Skills, Use Hand/Wrist/Arm Normally Again, Increase ROM, Resume Former Household Responsibilities (Cooking,Cleaning,Yard, etc.) Goal:: Magdalena will improve R wrist and punch out crew member strength for ADL tasks by 10# within 6 weeks. Goal:: Magdalena will improve R finger flexion/ extension by 5-10 degrees for ADL tasks within 6 weeks. Goal:: Magdalena will report no pain greater than 2/10 during sleep within 6 weeks. Goal:: Magdalena will demo a reduction in edema of R wrist and digits by 25% within 6 weeks. Anticipated Interventions Anticipated Interventions: Early Active Motion, A/AAROM/PROM, Strengthening, Edema Control, Scar Care, Massage, Modalities, Orthoses, Joint Protection/Energy Conservation, Fine Motor Coord/Anthony, Education re Self Massage Techniques, Home Program Please do not hesitate to contact me at [phone] by phone or if you have questions or concerns regarding this new plan of care! Sincerely, Kristen Medeiros, OTR/L, CHT
--- NOTE | 2022-02-04 16:25 | HP.OTREVAL ---
Dr. Connie Avalos MD, It has been my pleasure to treat MAGDALENA SANTO over the last 16 visits for closed displaced fracture of styloid process of right ulna initial encounte. Please see the progress note below for an update on the occupational therapy plan of care! Subjective: Pt. reported having sx yesterday (02-03-22) to remove the plate. Per suggestion Not to push the therapy because of arthritis. pt. reported she was able to make a fist last night. drove pt. to appt. Objective/Function: R wrist 18 cm. R wrist ext/flex 15/30*. R supination 40* (with wrap on). R RF 1/2 inch from composite fist. R hand opposition to middle finger, within 1 cm of RF. pt incision looking good slight seeping from proximal incision dressing was changed. pt returns to clinic Wednesday-. pts ROM ex reviewed and therapist stressed not to push the ROM Plan Frequency: 2x /Week Duration: 6 Weeks Plan: can lift 5#, finger flex/ext, ice 20 minutes at a time. assess skin/incision, ROM,. reassess research and development scientist strength next week. Goals - Goals Patient Goals: Regain Mobility, Regain Strength, Decrease Pain, Return to Work, Decrease Swelling/Stiffness, Improve Fine Motor Skills, Use Hand/Wrist/Arm Normally Again, Increase ROM, Resume Former Household Responsibilities (Cooking,Cleaning,Yard, etc.) Goal:: Magdalena will improve R wrist and research and development scientist strength for ADL tasks by 10# within 6 weeks. Goal:: Magdalena will improve R finger flexion/ extension by 5-10 degrees for ADL tasks within 6 weeks. Goal:: Magdalena will report no pain greater than 2/10 during sleep within 6 weeks. Goal:: Magdalena will demo a reduction in edema of R wrist and digits by 25% within 6 weeks. Anticipated Interventions Anticipated Interventions: Early Active Motion, A/AAROM/PROM, Strengthening, Edema Control, Scar Care, Massage, Modalities, Orthoses, Joint Protection/Energy Conservation, Fine Motor Coord/Anthony, Education re Self Massage Techniques, Home Program Please do not hesitate to contact me at [phone] by phone or if you have questions or concerns regarding this new plan of care! Sincerely, Kristen Medeiros OTR/Jaime, CHT
--- NOTE | 2022-04-07 09:36 | OTREVAL_ITS ---
Dr. Connie Avalos MD, It has been my pleasure to treat MAGDALENA SANTO over the last 31 visits for closed displaced fracture of styloid process of right ulna initial encounte. Please see the progress note below for an update on the occupational therapy plan of care! Subjective: pt arrives to therapy states she is doing fine- still very limited w ith her ROM - pt states she is however getting better at performing her ADls and IADLs. pt states she feels she can do about 70% of her tasks but still limited due to ROM-(pt would like more wrist ext). 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 PROM we gain 5* more. right forearm supination 70*. wrist ext with Electic Stim pt wrist 45* extension. pt still limited with strength -. pt able to perform wrist ext with 3#. and tolerate bookmaker's clerk/pinch strengthening on BTE. pts right bookmaker's clerk strength 10#. pt would benefit from PRE to increase strength Plan Frequency: 2x /Week Duration: 6 Weeks Plan: pt to return to dr. would a WHFO stat-a-dyne debbi-brace be b beneficial to help assist pt in gaining more end range of motion? pt continues to maintain the no lift more than 2.5# wt. restriction at work. Goals - Goals Patient Goals: Regain Mobility, Regain Strength, Decrease Pain, Return to Work, Decrease Swelling/Stiffness, Improve Fine Motor Skills, Use Hand/Wrist/Arm Normally Again, Increase ROM, Resume Former Household Responsibilities (Cooking,Cleaning,Yard, etc.) Goal:: Magdalena will improve R wrist and bookmaker's clerk strength for ADL tasks by 10# within 6 weeks. Goal:: Magdalena will improve R finger flexion/ extension by 5-10 degrees for ADL tasks within 6 weeks. Goal:: Magdalena will report no pain greater than 2/10 during sleep within 6 weeks. Goal:: Magdalena will demo a reduction in edema of R wrist and digits by 25% within 6 weeks. Anticipated Interventions Anticipated Interventions: Early Active Motion, A/AAROM/PROM, Strengthening, Edema Control, Scar Care, Massage, Modalities, Orthoses, Joint Protection/Energy Conservation, Fine Motor Coord/Anthony, Education re Self Massage Techniques, Home Program Please do not hesitate to contact me at [phone] by phone or if you have questions or concerns regarding this new plan of care! Sincerely, Kristen Medeiros, OTR/L, CHT
--- NOTE | 2022-05-05 10:07 | OTREVAL_ITS ---
Dr. Connie Avalos MD, It has been my pleasure to treat MAGDALENA SANTO over the last 37 visits for closed displaced fracture of styloid process of right ulna initial encounte. Please see the progress note below for an update on the occupational therapy plan of care! Subjective: pt arrives to session- states she had to cancel her last week apts d ue to issues with work and refrigerator-pt states her right wrist is feeling better- reports some pain around her cmc region - Objective/Function: pt states she got up at 4:30am- states stiff in am and after moving her wrist and hand gets better-. right wrist 45/ 35*. right director of therapy services 13# pt continues to struggle with getting strength. forearm supination is great and pt states she feels no pulling or tightness with that motion. pt has pain around CMC region- therapist let pt trial comfort cool thumb brace- pt did states less pain- therapist advised pt to get one for heavy work tasks - and will initiate thumb stabilization exercise as well as continue with director of therapy services strengthening and UB strengthening- Plan Frequency: 1-2x /Week Duration: 3 Weeks Plan: Pt continues to struggle with functional strength of right director of therapy services (13#) despite pt returning to using right hand with all daily tasks and work tasks- pt is using t-putty at home and in clinic we have her on the BTE with PRE focused on director of therapy services/wrist and forearm strength- pt tolerates well- rec'd cont. of therapy to increase strength to 25# or greater to increase pts functional use of right hand. Goals - Goals Patient Goals: Regain Mobility, Regain Strength, Decrease Pain, Return to Work, Decrease Swelling/Stiffness, Improve Fine Motor Skills, Use Hand/Wrist/Arm Normally Again, Increase ROM, Resume Former Household Responsibilities (Cooking,Cleaning,Yard, etc.) Goal:: Magdalena will improve R wrist and director of therapy services strength for ADL tasks by 10# within 6 weeks. Goal:: Magdalena will improve R finger flexion/ extension by 5-10 degrees for ADL tasks within 6 weeks. Goal:: Magdalena will report no pain greater than 2/10 during sleep within 6 weeks. Goal:: Magdalena will demo a reduction in edema of R wrist and digits by 25% within 6 weeks. Anticipated Interventions Anticipated Interventions: Early Active Motion, A/AAROM/PROM, Strengthening, Edema Control, Scar Care, Massage, Modalities, Orthoses, Joint Protection/Energy Conservation, Fine Motor Coord/Anthony, Education re Self Massage Techniques, Home Program Please do not hesitate to contact me at [phone] by phone or if you have questions or concerns regarding this new plan of care! Sincerely, Kristen Medeiros, OTR/L, CHT
--- NOTE | 2022-05-28 09:30 | HP.OTREVAL ---
Dr. Connie Avalos MD, It has been my pleasure to treat MAGDALENA SANTO over the last 41 visits for closed displaced fracture of styloid process of right ulna initial encounte. Please see the progress note below for an update on the occupational therapy plan of care! Subjective: pt arrives to OT states she is returning to 05/29/22. pt states she is doing most ADLs and IADLs at IND. level- some pain at times but able to perform. Objective/Function: right wrist 50/35*. right receiving team member strength ranges from 10#- 13# pt continues to struggle with getting strength even with free wts. 4#&5# along with BTE. forearm supination is great and pt states she feels no pulling or tightness with that motion. pt has pain around CMC region- therapist let pt trial comfort cool thumb brace- pt did states less pain- therapist advised pt to get one for heavy work tasks - pt performing thumb stabilization exercise as well as continue with receiving team member strengthening and UB strengthening-. Therapist is using BTE to increase receiving team member/pinch and forearm strength and pt is using t-putty at home- pt has been advised to continue with all activities as tolerated. Plan Plan: pt to return to . possible pt can cont. with her HEP. Goals - Goals Patient Goals: Regain Mobility, Regain Strength, Decrease Pain, Return to Work, Decrease Swelling/Stiffness, Improve Fine Motor Skills, Use Hand/Wrist/Arm Normally Again, Increase ROM, Resume Former Household Responsibilities (Cooking,Cleaning,Yard, etc.) Goal:: Magdalena will improve R wrist and receiving team member strength for ADL tasks by 10# within 6 weeks. Goal:: Magdalena will improve R finger flexion/ extension by 5-10 degrees for ADL tasks within 6 weeks. Goal:: Magdalena will report no pain greater than 2/10 during sleep within 6 weeks. Goal:: Magdalena will demo a reduction in edema of R wrist and digits by 25% within 6 weeks. Anticipated Interventions Anticipated Interventions: Early Active Motion, A/AAROM/PROM, Strengthening, Edema Control, Scar Care, Massage, Modalities, Orthoses, Joint Protection/Energy Conservation, Fine Motor Coord/Anthony, Education re Self Massage Techniques, Home Program Please do not hesitate to contact me at [phone] by phone or if you have questions or concerns regarding this new plan of care! Sincerely, Kristen Medeiros, OTR/L, CHT
== END 2022-05-28 19:00 | disposition home or self-care (01) ==
LOC: OT 09:00
PROVIDERS: PCP Family Medicine; Referring Provider Orthopaedic Surgery Hand Surgery; Visit Provider Orthopaedic Surgery Hand Surgery
DX: S52.611D Displaced fracture of right ulna styloid process, subsequent encounter for closed fracture with routine healing (principal); S52.571D Other intraarticular fracture of lower end of right radius, subsequent encounter for closed fracture with routine healing
CPT/HCPCS: 97110; 97140; 97165; 97530